=== PATIENT | male | born 1980 | race Caucasian/White ===

== ENCOUNTER 2024-02-07 00:01 | Emergency (ER) | payer SELFPAY ==
[2024-02-07 00:14] VITALS: BP 156/100
--- NOTE | 2024-02-07 03:42 | ED.GENMED ---
History of Present Illness
General
Chief Complaint: Skin Surface Trauma
Source: patient
Time Seen by Provider: 02/07/24 03:18
Nursing documentation reviewed up to this point in time: agreed with
Travel History
Have you had any contact with someone who has COVID-19?: No
Do you have any symptoms of coronavirus? Fever > 100 degrees, chills, cough, shortness of breath, sore throat, loss of taste or smell, muscle aches, or headache?: No
History of Present Illness
History of Present Illness:
28s male struck in the face with a softball just prior to arrival so through and through laceration to his upper lip intraoral laceration was lower lip no loose teeth unsure of his last tetanus shot
Past History
Past History
ED Past Medical History: None
ED Past Surgical History: Other (Oral surgery)
Social History
Tobacco: Non-smoker
Alcohol: None
Personal:
Living: with family
Employment: Employed
Review of Systems
Review of Systems
All Other Systems: Not applicable
EENT: Reports other (No loose teeth)
Phy Exam
Physical Exam
Physical Exam:
Physical Exam
General: no apparent distress, not acutely ill
Neck: 1.5 cm curvilinear laceration of the upper lip just to the vermilion border on the right edge small intraoral through and through extension on the upper lip, small less than 0.3 cm intraoral not through and through
laceration of the lower lip
Lungs: no acute respiratory distress.
Neuro: alert and oriented. no focal neurological deficits
Skin: no rash
Psychiatric: well kept. interactive and cooperative
Extremities: no edema.
Course
Vital Signs
Initial and Last Documented VS:
Initial Vital Signs
Temp Pulse Resp BP Pulse Ox
98 F 108 24 156/100 96
02/07/24 00:14 02/07/24 00:14 02/07/24 00:14 02/07/24 00:14 02/07/24 00:14
Last Documented Vital Signs
Temp Pulse Resp BP Pulse Ox
98 F 108 24 156/100 96
02/07/24 00:14 02/07/24 00:14 02/07/24 00:14 02/07/24 00:14 02/07/24 00:14
Procedures
Laceration Closure
Upper Lip:
Status of Wound: clean
Size of Wound in cm: 1.5
Description of Wound Edges: sharp and flap-well vascularized
Preparation: cleaned with soap & water
Anesthesia: 2% Lidocaine with epi
Wound exploration: explored to base- no FB
Type of Closure: single layer closure
Skin Closure Material: 6-0 nylon
Number of sutures: 3
Additional information:
Exterior wound closed anterior wound left closed by secondary intention
MDM/Problems Addressed
Differential Diagnosis Includes:
Laceration
*Critical Care Note
Total Time (30-74mins, 75-104mins- exclusive of procedures): Not Applicable
Update Note
Update Note:
Will update tetanus,
ED Attending Note
-
Portions of this chart may have been created with voice recognition software.� Occasional wrong word or��sound alike� substitutions may have occurred due to the inherent limitations of voice recognition software.
Discharge Plan
Departure
Patient Disposition: Home (Routine Discharge)
Date of Disposition: 02/07/24
Time of Disposition: 03:41
Patient with high blood pressure during this ER visit?: No
Condition: Good
Discharge Problem:
Laceration
Instructions: Laceration Repair With Stitches (DC)
Activity Restrictions/Additional Instructions:
Ice to your face, stitches out in 4 to 5 days in the ER or your family doctor
Rinse your mouth out with water mixed with peroxide a few times a day stay away from spicy foods for a few days
Interventions
Interventions:
*Risk Screen - Suicide Last Done: 02/07/24 00:14
*Neglect/Abuse Screening Last Done: 02/07/24 00:14
ED-Skin Assessment Last Done: 02/07/24 03:37
Discharge Date and Time
Print Language: LIBERIAN
== END 2024-02-07 05:05 | disposition home or self-care (01) ==
LOC: EMR 00:01
PROVIDERS: EMERGENCY PHYSICIAN Emergency Medicine
DX: S01.511A Laceration without foreign body of lip, initial encounter (principal); W21.07XA Struck by softball, initial encounter
CPT/HCPCS: 99282; 12011

== ENCOUNTER 2024-02-16 22:01 | Emergency (ER) | payer SELFPAY ==
[2024-02-16 22:02] VITALS: BP 177/107
--- NOTE | 2024-02-16 22:19 | ED.SKININJ ---
HPI-Injury
General
Chief Complaint: Wound Check/Suture Removal
Source: patient
Time Seen by Provider: 02/16/24 22:11
Nursing documentation reviewed up to this point in time: agreed with
Travel History
Have you had any contact with someone who has COVID-19?: No
Do you have any symptoms of coronavirus? Fever > 100 degrees, chills, cough, shortness of breath, sore throat, loss of taste or smell, muscle aches, or headache?: No
History of Present Illness-Injury
Initial Injury comments:
43-year-old male presents for suture removal. He had 3 stitches on his upper lip. He denies any fevers chills nausea or vomiting. No other issues. Sutures were placed well over a week ago
Past History
Past History
ED Past Medical History: None
ED Past Surgical History: Other (Oral surgery)
Social History
Tobacco: Non-smoker
Alcohol: None
Personal:
Living: with family
Employment: Employed
Phy Exam
General Physical Exam
General Presentation: well appearing and no apparent distress
General Habitus: normal
Pulmonary Exam
Pulmonary Exam: lungs clear and no respiratory distress
Cough: no cough
Musculoskeletal Exam
Musculoskeletal Exam: full ROM
Skin Exam
Skin Exam: normal color and warm/dry
Psychiatric Exam
Psychiatric Exam: normal mood/affect
Course
Vital Signs
Initial and Last Documented VS:
Initial Vital Signs
Temp Pulse Resp BP Pulse Ox
98.3 F 95 18 177/107 97
02/16/24 22:02 02/16/24 22:02 02/16/24 22:02 02/16/24 22:02 02/16/24 22:02
Last Documented Vital Signs
Temp Pulse Resp BP Pulse Ox
98.3 F 95 18 177/107 97
02/16/24 22:02 02/16/24 22:02 02/16/24 22:02 02/16/24 22:02 02/16/24 22:02
Procedures
Other
Indication for procedure:: Suture removal
Procedure completed by: Myself
Additional Procedure:
1 suture was removed. Patient feels that the others had fallen out. Patient tolerated procedure well with no immediate adverse effects.
*Critical Care Note
Total Time (30-74mins, 75-104mins- exclusive of procedures): Not Applicable
ED Attending Note
-
Portions of this chart may have been created with voice recognition software.� Occasional wrong word or��sound alike� substitutions may have occurred due to the inherent limitations of voice recognition software.
Discharge Plan
Departure
Patient Disposition: Home (Routine Discharge)
Date of Disposition: 02/16/24
Time of Disposition: 22:19
Patient with high blood pressure during this ER visit?: Yes
Condition: Good
Discharge Problem:
Encounter for removal of sutures
Instructions: Stitches Removal, Wound Care (DC), BLOOD PRESSURE
Referrals:
NONE,* [Family Provider] -
[facility] [Outside]
Activity Restrictions/Additional Instructions:
It was a pleasure meeting you and taking part in your care. We hope for your continued healing and wellness.
Please read discharge instructions in their entirety. However, they are for general education and may not describe your exact diagnosis at discharge. Information on your ER visit and medical conditions were discussed with you along with appropriate
follow up information...
If indicated, please take your medications as instructed and indicated on discharge paperwork.
Please schedule a follow up appointment as directed. Call to schedule an appointment
Please return to the emergency department with ANY change in, persisting, or worsening of symptoms. If any of your symptoms do not improve, or persist, or become more severe within 6-12 hours, please return to the emergency department for further
care.
Please return to the emergency department if you develop a headache, neck pain/stiffness, fever greater than 100.4F, chest pain, shortness of breath, persistent nausea, vomiting, slurred speech, difficulty walking, numbness/tingling, weakness, signs
of infection or any other symptoms that are worrisome to you.
If you have any questions or concerns please do not hesitate to call the Hospital at or E-mail me directly at [email or web address]
Interventions
Interventions:
*Risk Screen - Suicide Last Done: 02/16/24 22:02
*General Assessment Last Done: 02/16/24 22:02
*Neglect/Abuse Screening Last Done: 02/16/24 22:02
Discharge Date and Time
Print Language: INDIAN
== END 2024-02-16 22:33 | disposition home or self-care (01) ==
LOC: EMR 22:01
PROVIDERS: EMERGENCY PHYSICIAN Student in an Organized Health Care Education/Training Program
DX: Z48.02 Encounter for removal of sutures (principal); R03.0 Elevated blood-pressure reading, without diagnosis of hypertension; K21.9 Gastro-esophageal reflux disease without esophagitis
CPT/HCPCS: 99281

== ENCOUNTER 2024-05-20 22:54 | Emergency (ER) | payer SELFPAY ==
[2024-05-20 22:54] VITALS: BMI 42.7
[2024-05-20 22:57] VITALS: BP 172/112
--- NOTE | 2024-05-21 00:29 | ED.GENMED ---
History of Present Illness
General
Chief Complaint: Musculo-Skeletal Complaint
Time Seen by Provider: 05/21/24 00:12
History of Present Illness
History of Present Illness:
43-year-old male presents the emergency department for evaluation of left calf pain, states he was running during a softball game when he felt a pop in the mid calf. He was able to bear slight weight on the foot afterward. Denies any knee or ankle
pain.
Past History
Past History
ED Past Medical History: None
ED Past Surgical History: Other (Oral surgery)
Social History
Tobacco: Non-smoker
Alcohol: None
Personal:
Living: with family
Employment: Employed
Review of Systems
Review of Systems
Allergies reviewed?: Yes
All Other Systems: ROS reviewed and negative except as documented in HPI and ROS
Phy Exam
Physical Exam
Physical Exam:
GEN: Well appearing, NAD, WDWN
HEENT: Oral mucosa moist, no scleral icterus
Cardiac: Regular rate
Lung: No respiratory distress, no tachypnea
MSK: No gross deformity or injuries. Significant asymmetry of the calf muscles, patient states this is normal due to Achilles tendon issues as a child. Markedly tender to the mid gastrocnemius body, no firmness or rigidity. Negative Mckenzie
test. Left knee range of motion normal
Skin: Good color, no pallor or jaundice, no rashes
Neuro: AO x3, moves all extremities freely
Psych: Calm, cooperative
Course
Vital Signs
Initial and Last Documented VS:
Initial Vital Signs
Temp Pulse Resp BP Pulse Ox
98.2 F 124 24 172/112 98
05/20/24 22:57 05/20/24 22:57 05/20/24 22:57 05/20/24 22:57 05/20/24 22:57
Last Documented Vital Signs
Temp Pulse Resp BP Pulse Ox
98.2 F 104 22 172/112 95
05/20/24 22:57 05/21/24 00:00 05/21/24 00:00 05/20/24 22:57 05/21/24 00:00
MDM/Problems Addressed
MDM/Problems Addressed:
Exam consistent with gastroc tear, Achilles tendon appears intact. No clinical evidence of compartment syndrome at this time however educated the patient on the warning signs. Discussed further supportive care
*Critical Care Note
Total Time (30-74mins, 75-104mins- exclusive of procedures): Not Applicable
ED Attending Note
-
Portions of this chart may have been created with voice recognition software.� Occasional wrong word or��sound alike� substitutions may have occurred due to the inherent limitations of voice recognition software.
Discharge Plan
Departure
Patient Disposition: Home (Routine Discharge)
Date of Disposition: 05/21/24
Time of Disposition: 00:29
Patient with high blood pressure during this ER visit?: No
Discharge Problem:
Gastrocnemius tear
Instructions: Lower Extremity Muscle Strain (DC)
Referrals:
Martinez Billings MD [Active] -
NONE,* [Family Provider] -
Activity Restrictions/Additional Instructions:
Your findings are consistent with a calf muscle tear. This will take several weeks to fully heal. For the next 5 days you should use crutches and keep the leg elevated often. Ice and use an Yariel wrap to compress the calf muscle. You may begin to
bear weight on the foot as pain will allow. Follow-up with orthopedics in 2 weeks if you still cannot put full weight on the leg. If it anytime you develop severe intense pain of the calf and the calf feels very hard (think like a 2 x 4) return to
the emergency department or call 911 immediately
Interventions
Interventions:
*Risk Screen - Suicide Last Done: 05/20/24 22:57
*General Assessment Last Done: 05/21/24 00:50
*Neglect/Abuse Screening Last Done: 05/20/24 23:00
ED- Fall Risk Assessment Last Done: 05/21/24 00:50
*ED COVID-19 Vaccine History Last Done: 05/21/24 00:50
*Nursing Disposition Last Done: 05/21/24 00:50
ED-Musculoskeletal Assessment Last Done: 05/21/24 00:21
Discharge Date and Time
Discharge Date/Time: 05/21/24 00:52
Print Language: [place]
== END 2024-05-21 00:52 | disposition home or self-care (01) ==
LOC: EMR 22:54
PROVIDERS: EMERGENCY PHYSICIAN Emergency Medicine
DX: S86.812A Strain of other muscle(s) and tendon(s) at lower leg level, left leg, initial encounter (principal); X58.XXXA Exposure to other specified factors, initial encounter; Y93.64 Activity, baseball
CPT/HCPCS: 99282